=== PATIENT | male | born 1970 | race Caucasian/White ===

== ENCOUNTER → 2021-12-04 | Outpatient (CLI) | payer OTHER ==
--- NOTE | 2021-12-04 18:41 | DIREP ---
PROCEDURE:MRI JOINT LOWER EXTREMITY-RT W/O COMPARISON:None. INDICATIONS:RIGHT HIP DJD, FEMORAL HEAD AVASCULAR NECROSIS TECHNIQUE:Multiplanar multi sequence MR imaging of the hip joint was obtained. No interarticular or IV gadolinium contrast administered. Moderately limited due to lack of axial images FINDINGS: LABRUM:No discrete left hip labral tear. Maceration of the right hip labrum JOINT:Grade 4 osteoarthritis of the right hip labrum. Mild left hip osteoarthritis. TENDONS:Normal gluteus insertions and hamstring origin. Normal adductor origins. Normal iliopsoas. BONES:Advanced subcortical cystic change on both sides of the right femoral acetabular joint. Abnormal morphology of the right femoral head with evidence of FICAT stage IV AVN and subarticular collapse. Osteochondral bone so noted measuring approximately 3.0 x 2.6 cm. 1 mm cartilaginous cap thickness PELVIC ORGANS: No discrete intracavitary abnormality. NEURO: Normal neurovascular structures. OTHER:None. CONCLUSION: 1. 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 Grade 4 osteoarthritis of the right femoral acetabular joint 3. Osteochondroma from the inferomedial right femur. Normal cartilaginous cap thickness 4. Maceration of the right hip labrum Dictated by: Yair Crawford DO on 12/04/2021 at 06:35 PM
== END | disposition home or self-care (01) ==
LOC: RAD 14:20
PROVIDERS: ATTEND Family Medicine
DX: S73.101A Unspecified sprain of right hip, initial encounter (principal); M19.09 Primary osteoarthritis, other specified site; D16.21 Benign neoplasm of long bones of right lower limb; X58.XXXA Exposure to other specified factors, initial encounter; Y93.89 Activity, other specified; Y92.89 Other specified places as the place of occurrence of the external cause; Y99.8 Other external cause status
CPT/HCPCS: 73721